=== PATIENT | female | born 1965 | race Native Hawaiian/Other Pacific Islander ===

== ENCOUNTER 2017-02-01 09:30 | Outpatient (CLI) | payer OTHER ==
[2017-02-01 10:05] LABS: PLATELET COUNT 402 K/uL (152-353)
[2017-02-01 10:37] LABS: POTASSIUM 2.7 mmol/L (3.6-5.2)
== END 2017-02-01 19:23 | disposition home or self-care (01) ==
LOC: LABW 09:30
PROVIDERS: Internal Medicine Nephrology
DX: E55.9 Vitamin D deficiency, unspecified (principal); I50.9 Heart failure, unspecified; E11.9 Type 2 diabetes mellitus without complications; E87.6 Hypokalemia
CPT/HCPCS: 36415; 80053; 80061; 81000; 82043; 82306; 82570; 83036; 84439; 84443; 84550; 85027

== ENCOUNTER 2017-02-15 13:48 | Outpatient (CLI) | payer OTHER | END 2017-02-15 20:03 | disposition home or self-care (01) | LOC: RAD 13:48 | DX: F41.9 Anxiety disorder, unspecified (principal); H54.10 Blindness, one eye, low vision other eye, unspecified eyes; I50.9 Heart failure, unspecified; E11.9 Type 2 diabetes mellitus without complications; E87.6 Hypokalemia; G47.33 Obstructive sleep apnea (adult) (pediatric); J43.9 Emphysema, unspecified; R42 Dizziness and giddiness ==

== ENCOUNTER 2017-07-30 15:01 | Emergency (ER) | payer OTHER ==
[~2017-07-30] VITALS: Ht 167.6 cm; Wt 119.8 kg
== END 2017-07-30 17:25 | disposition home or self-care (01) ==
LOC: ED 15:01
DX: M54.41 Lumbago with sciatica, right side (principal); S39.012A Strain of muscle, fascia and tendon of lower back, initial encounter; X50.0XXA Overexertion from strenuous movement or load, initial encounter; Y92.89 Other specified places as the place of occurrence of the external cause
CPT/HCPCS: 96372; 99283; J1100; J1885; J2360

== ENCOUNTER 2017-09-20 09:40 | Outpatient (CLI) | payer OTHER ==
[2017-09-20 10:44] LABS: PLATELET COUNT 303 K/uL (152-353)
[2017-09-20 11:54] LABS: POTASSIUM 2.5 mmol/L (3.6-5.2); SODIUM 138 mmol/L (136-145)
== END 2017-09-20 11:00 | disposition home or self-care (01) ==
LOC: RAD 09:40
PROVIDERS: Physician Assistant
DX: M54.5 Low back pain (principal); M25.511 Pain in right shoulder; I50.9 Heart failure, unspecified; G47.33 Obstructive sleep apnea (adult) (pediatric); E11.9 Type 2 diabetes mellitus without complications; E87.6 Hypokalemia; R42 Dizziness and giddiness; E55.9 Vitamin D deficiency, unspecified
CPT/HCPCS: 36415; 80048; 80061; 82306; 82607; 82728; 82746; 83036; 83540; 83550; 84439; 84443; 84550; 85027; 85044

== ENCOUNTER 2017-12-16 15:12 | Emergency (ER) | payer OTHER ==
[~2017-12-16] VITALS: Ht 167.6 cm; Wt 112.9 kg
== END 2017-12-16 16:18 | disposition home or self-care (01) ==
LOC: ED 15:12
DX: R11.0 Nausea (principal); R21 Rash and other nonspecific skin eruption; R05 Cough
CPT/HCPCS: 99281

== ENCOUNTER 2018-02-04 22:43 | Emergency (ER) | payer OTHER ==
[~2018-02-04] VITALS: Ht 167.6 cm; Wt 117.5 kg
[2018-02-04] MEDS ORDERED: TESSALON PER100 MG PO (23:02)
[2018-02-04] MEDS ORDERED: TRAZ50TA36 PO (23:03)
[2018-02-04] MEDS ORDERED: CLARITIN10 M1 PO (23:03)
[2018-02-04] MEDS ORDERED: TOPIRAMATE50 MG PO (23:03)
[2018-02-04] MEDS ORDERED: CYCL10TA35 PO (23:04)
[2018-02-04] MEDS ORDERED: FUROSEMIDE40 MG PO (23:04)
[2018-02-04] MEDS ORDERED: COZAAR25 MG PO (23:05)
[2018-02-04] MEDS ORDERED: METFORMIN ER1000 MG PO (23:05)
[2018-02-04] MEDS ORDERED: KLOR-CON M2020 MEQ PO (23:06)
[2018-02-04] MEDS ORDERED: METO25TA4 PO (23:06)
[2018-02-04] MEDS ORDERED: TIZA4TAB5 PO (23:07)
[2018-02-04] MEDS ORDERED: GABA400C2 PO (23:07)
[2018-02-04] MEDS ORDERED: GLIM4TAB PO (23:07)
[2018-02-04] MEDS ORDERED: CLIN300C PO (23:09)
[2018-02-04] MEDS ORDERED: CENTRUM SILVER1 TA2 PO (23:10)
[2018-02-04] MEDS ORDERED: METO5TAB38 PO (23:10)
[2018-02-04] MEDS ORDERED: BREO ELLIPTA 101 INH IN (23:11)
[2018-02-04] MEDS ORDERED: MECLIZINE12.5 MG PO (23:11)
[2018-02-04] MEDS ORDERED: D31000 UNIT PO (23:12)
[2018-02-04] MEDS ORDERED: [UNRECOGNIZED DRUG - OTHER] PO (23:12)
[2018-02-04] MEDS ORDERED: FOLIC PO (23:12)
== END 2018-02-05 00:17 | disposition home or self-care (01) ==
LOC: ED 22:43
DX: D72.828 Other elevated white blood cell count (principal); K14.8 Other diseases of tongue; K13.0 Diseases of lips
CPT/HCPCS: 99281